=== PATIENT | female | born 1960 | race Caucasian/White ===

== ENCOUNTER 2018-04-26 10:00 | Emergency (ER) | payer BC ==
[2018-04-26 10:35] VITALS: BP 114/82
--- NOTE | 2018-04-26 10:59 | UC ---
UC General HPI - HPI Summary HPI Summary: pt notes a swollen spot by her nail on the R middle finger for about 1 month. over the past day or so she noted a spot looked like a cyst and became tender. she has been soaking it without resolution. no joint pain, fever or injury. - History of Current Complaint Chief Complaint: UCUpperExtremity Stated Complaint: SKIN COMPLAINT Time Seen by Provider: 04/26/18 10:29 Hx Obtained From: Patient Onset/Duration: Gradual Onset Pain Intensity: 2 Aggravating: nothing Associated Signs & Symptoms: Negative: Fever - Allergy/Home Medications Allergies/Adverse Reactions: Allergies Allergy/AdvReac Type Severity Reaction Status Date / Time caffeine Allergy Unknown Verified 04/26/18 10:33 Reaction Details red dye Allergy Unknown Verified 04/26/18 10:33 Reaction Details Yeast Allergy Unknown Verified 04/26/18 10:33 Reaction Details Home Medications: Home Medications Multivitamin [Multiple Vitamins] 1 each PO DAILY 04/26/18 [History Confirmed ] PMH/Surg Hx/FS Hx/Imm Hx Previously Healthy: Yes - Surgical History Surgical History: Yes Surgery Procedure, Year, and Place: RIGHT ThUMB COLLATERAL LIGAMENT REPAIR. COLONOSCOPY. Vericose vein surgery 07/2014 - Family History Known Family History: Positive: Hypertension - Social History Occupation: Employed Full-time Alcohol Use: Occasionally Substance Use Type: None Smoking Status (MU): Never Smoked Tobacco - Immunization History Vaccination Up to Date: Yes Review of Systems Constitutional: Negative Skin: Rash - R middle finger Eyes: Negative ENT: Negative Respiratory: Negative Cardiovascular: Negative Gastrointestinal: Negative Genitourinary: Negative Motor: Negative Neurovascular: Negative Musculoskeletal: Negative Neurological: Negative Psychological: Negative Is Patient Immunocompromised?: No All Other Systems Reviewed And Are Negative: Yes Physical Exam Triage Information Reviewed: Yes Appearance: Well-Appearing Vital Signs: Initial Vital Signs Temp 97.7 F 04/26/18 10:27 Pulse 70 04/26/18 10:27 Resp 15 04/26/18 10:27 BP 114/82 04/26/18 10:27 Pulse Ox 98 04/26/18 10:27 Eyes: Positive: Conjunctiva Clear ENT: Positive: Normal ENT inspection Neck: Positive: Supple, Nontender Respiratory: Positive: Lungs clear, Normal breath sounds Cardiovascular: Positive: RRR, No Murmur Abdomen Description: Positive: Nontender, No Organomegaly, Soft Bowel Sounds: Positive: Present Musculoskeletal: Positive: ROM Intact Neurological: Positive: Alert Psychological: Positive: Age Appropriate Behavior Skin Exam: Normal Skin: Positive: rashes - Mild redness and swelling radial side of R middle finger nail with small center yellow spot. No streaking and finger has full s/v/ m function. Course/Dx - Course Course Of Treatment: PROCEDURE: Betadine to site. Edge of skin gently pushed to side and tiny spot of puss drained along with tiny fiber type material. Finger soaked in warm water with soap then rinsed, dried and covered with antibiotic ointment and a bandage. No bleeding. Pt tolerated well with full s/v/ m function after. Pt declined a culture. Infection x 1 month thus will cover with keflex. - Differential Dx - Multi-Symptom Provider Diagnoses: Paronychia R middle finger Discharge - Sign-Out/Discharge Documenting (check all that apply): Patient Departure All imaging exams completed and their final reports reviewed: No Studies - Discharge Plan Condition: Improved Disposition: HOME Prescriptions: Cephalexin CAP* [Keflex CAP*] 500 mg PO TID 7 Days #21 cap Patient Education Materials: Paronychia (ED) Referrals: Ronal Gonzales DO [Primary Care Provider] - 5 Days - Billing Disposition and Condition Condition: IMPROVED Disposition: Home
== END 2018-04-26 11:04 | disposition home or self-care (01) ==
LOC: UCCORT 10:00
DX: L03.011 Cellulitis of right finger (principal); Z91.018 Allergy to other foods; Z91.041 Radiographic dye allergy status
CPT/HCPCS: 99212; G0463